=== PATIENT | male | born 2000 | race American Indian/Alaskan Native ===

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

== ENCOUNTER 2020-01-15 11:07 | Outpatient (CLI) | payer BC ==
[2020-01-15 12:13] LABS: Basophils % (Auto) 0.7 % (0.0-1.8); Eosinophils # (Auto) 0.2 K/mm3 (0.0-0.4); Eosinophils % (Auto) 3.7 % (0.0-4.3); Hematocrit 47.4 % (35.5-45.6); Hemoglobin 16.5 gm/dl (11.8-15.2); Lymphocytes # (Auto) 1.6 K/mm3 (1.2-5.4); Lymphocytes % (Auto) 25.5 % (13.4-35.0); Mean Corpuscular HGB Conc 35 % (32-34); Mean Corpuscular Volume 89 fl (84-94); Monocytes # (Auto) 0.5 K/mm3 (0.0-0.8); Monocytes % (Auto) 7.6 % (0.0-7.3); Platelet Count 233 K/mm3 (140-440); Red Blood Count 5.36 M/mm3 (3.65-5.03); Red Cell Distribution Width 13.2 % (13.2-15.2)
[2020-01-15 12:34] LABS: Alanine Aminotransferase 51 units/L (7-56); Albumin 4.3 g/dL (3.9-5); BUN/Creatinine Ratio 21; Blood Urea Nitrogen 19 mg/dL (9-20); Calcium 9.5 mg/dL (8.4-10.2); HDL Cholesterol 41 mg/dL (40-59); Hemolysis Index 6; LDL Cholesterol,Direct 77 mg/dL (50-130)
[2020-01-19 12:23] LABS: Vitamin D, 25-OH, D2 <4 ng/mL
== END 2020-01-15 11:08 | disposition home or self-care (01) ==
LOC: LAB 11:07
PROVIDERS: ATTEND Internal Medicine
DX: Z00.00 Encounter for general adult medical examination without abnormal findings (principal); Z13.220 Encounter for screening for lipoid disorders; Z13.29 Encounter for screening for other suspected endocrine disorder; Z13.21 Encounter for screening for nutritional disorder
CPT/HCPCS: 36415; 80053; 80061; 82306; 82607; 83036; 84443; 85025

== ENCOUNTER 2021-08-05 13:58 | Outpatient (CLI) | payer BC ==
[2021-08-05 14:22] LABS: Basophils # (Auto) 0.1 K/mm3 (0.0-0.1); Eosinophils # (Auto) 0.2 K/mm3 (0.0-0.4); Eosinophils % (Auto) 3.1 % (0.0-4.3); Hematocrit 48.8 % (35.5-45.6); Hemoglobin 16.3 gm/dl (11.8-15.2); Lymphocytes # (Auto) 1.1 K/mm3 (1.2-5.4); Lymphocytes % (Auto) 17.1 % (13.4-35.0); Mean Corpuscular HGB Conc 33 % (32-34); Mean Corpuscular Volume 89 fl (84-94); Monocytes # (Auto) 0.5 K/mm3 (0.0-0.8); Platelet Count 213 K/mm3 (140-440); Red Cell Distribution Width 13.2 % (13.2-15.2)
[2021-08-05 14:43] LABS: Alanine Aminotransferase 29 units/L (7-56); Albumin 4.8 g/dL (3.9-5); BUN/Creatinine Ratio 18; Blood Urea Nitrogen 14 mg/dL (9-20); Calcium 9.3 mg/dL (8.4-10.2); Chol/HDL Ratio 3.12 %; HDL Cholesterol 40 mg/dL (40-59); Hemolysis Index 16; LDL Cholesterol,Direct 75 mg/dL (50-130)
[2021-08-09 12:22] LABS: Vitamin D, 25-OH, D2 11 ng/mL
== END 2021-08-05 13:59 | disposition home or self-care (01) ==
LOC: LAB 13:58
PROVIDERS: ATTEND Internal Medicine
DX: Z00.00 Encounter for general adult medical examination without abnormal findings (principal); E55.9 Vitamin D deficiency, unspecified; R53.83 Other fatigue; E66.9 Obesity, unspecified
CPT/HCPCS: 36415; 80053; 80061; 82306; 84443; 85025